=== PATIENT | male | born 1945 | race Caucasian/White ===

== ENCOUNTER 2019-01-27 10:23 | Outpatient (CLI) | payer BC ==
[~2019-01-27] VITALS: Ht 182.9 cm; Wt 99.1 kg
--- NOTE | ~2019-01-27 | HEMODYNAMI ---
PATIENT:GEORGES CUEVAS MEDICAL RECORD: [id number] : 41 LOCATION:[facility] ADMISSION DATE: 01/27/19 Generatedon:01/27/201914:59 Patient name: GEORGES CUEVAS Patient #: [id number] SSN: [id number] : 1945 Date of study: 01/27/2019 Page: Of Hemodynamic Procedure Report Patient Data Patient Demographics Procedure consent was obtained First Name: GEORGES Gender: Male Last Name: FAITH : 1945 Middle Initial: A Age: 73 year(s) Patient #: [id number] Race: SSN: [id number] Additional ID: [id number] Contact details Address: [address] [place] [address] State: [place] City: [facility] Zip code: [address] Past Medical History Allergies: No known allergies Admission Admission Data Admission Date: 01/27/2019 Admission Time: 10:23 Admit Source: Other Lab Results Lab Result Date: 01/27/2019 Lab Result Time: 10:50 Biochemistry Name Units Result Min Max BUN mg/dl 18 --(---*)-- 7 18 Creatinine mg/dl 1.1 --(--*-)-- 0.6 1.3 CBC Name Units Result Min Max Hematocrit % 40.2 -*(----)-- 42 54 Hemoglobin g/dl 14 --(*---)-- 13.5 17.5 Procedure Procedure Types Cath Procedure Diagnostic Procedure CAROL Procedure Description Procedure Date Procedure Date: 01/27/2019 Procedure Start Time: 14:28 Procedure Staff Name Function Jayce Barrow MD Performing Physician Roni Morales RT Monitor Shiva Evangelista RN Nurse Jose French Local Government Legislator Eric Barrientos CRNA Additional personnel Procedure Data Cath Procedure Fluoroscopy Diagnostic fluoroscopy Total fluoroscopy Time: 0 time: 0 min min Diagnostic fluoroscopy Total fluoroscopy dose: 0 dose: 0 mGy mGy Contrast Material Contrast Material Type Amount (ml) Isovue 300 0 Estimated blood loss: 0 ml Procedure Complications No complications Procedure Medications Medication Administration Route Dosage Oxygen etCO2 Nasal cannula 2 l/min Refer to Anesthesia Notes for Sedation Medications 0.9% NaCl I.V. 100 ml/hr Hemodynamics Rest HGB: 14 (g/dl) Heart Rate: 52 (bpm) Snapshots Pre Cath Intra NCS Post Cath Vital Signs Time Heart Resp SPO2 etCO2 NIBP (mmHg) Rhythm Pain Sedation Rate (ipm) (%) (mmHg) Status Level (bpm) 14:33:17 53 15 97 31.5 151/67(89) NSR 0 (11) 10(A) , No pain 14:37:38 61 14 99 30 157/78(128) NSR 0 (11) 10(A) , No pain 14:42:09 53 16 99 33.8 157/68(109) NSR 0 (11) 10(A) , No pain 14:46:29 58 17 98 33 147/70(110) NSR 0 (11) 10(A) , No pain 14:50:49 56 20 95 12 163/83(129) NSR 0 (11) 9(A) , No pain 14:55:15 55 20 98 35.2 155/68(99) NSR 0 (11) 9(A) , No pain 14:58:34 60 38 98 37.5 121/96(114) NSR 0 (11) 10(A) , No pain Medications Time Medication Route Dose Verified Delivered Reason Notes Effective ness by by 14:35:16 Oxygen etCO2 2 Jayce Shannon used for Nasal l/min [facility] Cabrera Evangelista RN procedure cannula 14:35:20 Refer to Jayce Shannon Anesthesia St Cabrera Evangelista RN Notes for Sedation Medications 14:45:52 0.9% NaCl I.V. 100 Jayce Shannon used for ml/hr [facility] Cab[facility] Evangelista RN procedure Procedure Log Time Note 14:15:41 Shiva Evangelista RN sent for patient. Start room use. 14:29:05 Informed consent obtained and on chart 14:31:13 Lab Result : Hematocrit 40.2 % 14:31:13 Lab Result : Hemoglobin 14 g/dl 14:31:13 Lab Result : Creatinine 1.1 mg/dl 14:31:13 Lab Result : BUN 18 mg/dl 14:31:17 Admit Source: Other 14:31:34 Jose French Blanking Press Operator present for CAROL. 14:31:39 Procedure Status CAROL. 14:31:46 Time tracking: Regular hours (M-F 7:00 - 5:00) 14:31:50 Plan of Care:Hemodynamics will remain stable., Cardiac rhythm will remain stable., Comfort level will be maintained., Respiratory function will remain adequate., Patient/ family verbilizes understanding of procedure., Procedure tolerated without complication., Recovers from procedure without complications.. 14:31:58 Patient arrived from Pre/Post Procedure Room to [facility]. Patient remains on bed/stretcher for procedure. 14:32:00 Warm blankets applied, and mirlande hugger turned on for patient comfort. 14:32:01 Correct patient and procedure confirmed by team. 14:32:01 ECG and BP/O2 sat monitors applied to patient. 14:32:04 Vital chart was started 14:32:07 Baseline sample Acquired. 14:32:10 Rhythm: sinus rhythm 14:32:11 Full Disclosure recording started 14:32:24 H&P Date Dictated: 01/13/2019 Within 30 days and on chart., H&P Addendum completed by physician on day of procedure. (MUST COMPLETE FOR ALL OUTPATIENTS). 14:32:25 Pre-procedure instructions explained to patient. 14:32:26 Pre-op teaching completed and patient verbalized understanding. 14:32:28 Family in waiting room. 14:32:30 Patient NPO since Midnight. 14:33:51 Eric Barrientos CRNA present and monitoring patient for TIVA. 14:35:16 Oxygen 2 l/min etCO2 Nasal cannula was administered by Shiva Evangelista RN; used for procedure; 14:35:20 Refer to Anesthesia Notes for Sedation Medications was administered by Shiva Evangelista RN; ; 14:37:29 Patient allergic to No known allergies 14:37:31 Is the patient allergic to Iodine/contrast media? No. 14:37:32 Is patient on blood thinner?Yes 14:37:34 ACC The patient was administered the following blood thiners within the last 24 hours: ACCAspirin 14:37:36 Patient diabetic? No. 14:37:38 Previous problem with sedation/anesthesia? No ? 14:37:39 Snore? Yes 14:37:40 Sleep apnea? No 14:37:40 Deviated septum? No 14:37:42 Opens mouth fully? Yes 14:37:42 Sticks out tongue? Yes 14:37:44 Airway obstruction? No ? 14:37:45 Dentures? No ? 14:37:58 IV patent on arrival in left forearm with 0.9% NaCl at O. 14:38:00 Lab results completed and on chart. 14:38:02 Alarms reviewed by Roberto Connors 14:44:31 Physician arrived 14:44:31 --------ALL STOP TIME OUT------ 14:44:32 Final Timeout: patient, procedure, and site verified with staff and physician. All members of the team are in agreement. 14:44:38 Physical assessment completed. ASA score P 3 - A patient with severe systemic disease as per Jayce Barrow MD. 14:44:42 Sedation plan: TIVA Medication:Propofol 14:45:52 0.9% NaCl 100 ml/hr I.V. was administered by Shiva Evangelista RN; used for procedure; 14:47:31 CAROL started. 14:53:13 CAROL completed. 14:53:29 Procedure ended.(Physican Out) 14:54:30 Fluoroscopy time 00.00 minutes. 14:54:32 Fluoroscopy dose: 0 mGy 14:54:32 Flurop Dose total: 0 14:54:34 Dose Area Product 0 mGy/cm. 14:54:36 Contrast amount:Isovue 300 0ml. 14:54:49 Post-procedure physical assessment completed. ASA score P 3 - A patient with severe systemic disease as per Jayce Barrow MD. 14:54:51 Post procedure rhythm: unchanged. 14:54:53 Estimated blood loss: 0 ml 14:54:54 Post procedure instruction explained to patient.Patient verbalizes understanding. 14:54:55 Patient needs reinforcement of post procedure teaching. 14:55:04 Procedure and supply charges have been captured, reviewed, submitted and are correct. 14:55:06 Procedure Complication : No complications 14:55:11 See physician's report for complete and final results. 14:55:12 Report given to Pre/Post Procedure Room. 14:55:15 Patient transfered to Pre/Post Procedure Room with Stretcher. 14:55:20 End room use (Document Last) 14:59:23 Vital chart was stopped Signature Audit [place] Stage Time Signature Unsigned Intra-Procedure 01/27/2019 Roni Morales 2:59:20 PM RT(R) Signatures Performing Physician : Signature : Jayce Barrow MD Date : Time : Monitor : Roni Morales RT Signature : Date : Time : Nurse : Shiva Evangelista RN Signature : Date : Time : [place] [address] [place] [address]
[~2019-01-27 10:23] MED LIST: ATACAND8 MG PO; BAYER CHEWABLE81 MG PO; COREG6.25 MG PO
[2019-01-27 10:51] VITALS: BP 132/55; Ht 182.9 cm; Wt 99.1 kg
[2019-01-27 11:05] LABS: BASOPHILS 0.4 % (0-2); EOSINOPHILS 2.4 % (0-7); HEMATOCRIT 40.2 % (42.0-54.0); IMMATURE GRANULOCYTES 0.1 % (0-5); LYMPHOCYTES 23.5 % (15-50); MCH 29.9 pg (26.0-34.0); MCHC 34.8 g/dL (31.0-37.0); MCV 85.9 fL (80.0-100.0); MONOCYTES 8.4 % (2-11); NEUTROPHILS 65.2 % (40-80); PLATELET COUNT 188 10x3/uL (130-400); RBC 4.68 10x6/uL (4.20-6.10); RDW 13.4 % (11.5-14.5); WBC 6.7 10x3/uL (4.8-10.8)
[2019-01-27 11:14] LABS: ANION GAP 12.7 mmol/L (8-16); CALCIUM 8.8 mg/dL (8.5-10.1); CARBON DIOXIDE 26.6 mmol/L (21.0-32.0); CREATININE - SERUM 1.1 mg/dL (0.6-1.3); POTASSIUM - SERUM 4.3 mmol/L (3.5-5.1)
--- NOTE | 2019-01-27 15:00 | NUR ---
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 PT AWAKE AND ALERT, DENIES PAIN OR DISCOMFORT. HR NSR RATE 60, BP 127/59, O2 SAT 96 ON 2L/NC. MONITORS PLACED ON PT. DR DUNCAN AT BEDSIDE, DISCUSSING PROCEDURE RESULTS AND PLAN OF CARE. AT BEDSIDE, CALL LIGHT IN REACH
--- NOTE | 2019-01-27 15:32 | NUR ---
PT DOING WELL, SITTING UP AND VISITING W . PT DENIES DIFFICULITY SWALLOWING OR DISCOMFORT. VSS. CALL LIGHT IN REACH, REMAINS AT BEDSIDE.
--- NOTE | 2019-01-27 15:50 | NUR ---
DISCHARGE INSTRUCTIONS REVIEWED W PT AND , BOTH VERBALIZED UNDERSTANDING. PT TOLERATING SIPS OF COLA W/O DIFFICULITY SWALLOWING. MONITORS AND O2 REMOVED. IV REMOVED W CATH INTACT. PT UP TO DRESS FOR DISCHARGE
--- NOTE | 2019-01-27 16:05 | NUR ---
PT DISCHARGED VIA WC TO PRIVATE VEHICLE W . PT HAS ALL BELONGINGS AND DISCHARGE INSTRUCTIONS.
--- NOTE | 2019-01-31 08:39 | TEE ---
PATIENT:GEORGES CUEVAS MEDICAL RECORD: [id number] LOCATION:[facility] AGE OF PATIENT: 73 ADMISSION DATE: 01/27/19 SEX: M REFERRING PHYSICIAN: INTERPRETING PHYSICIAN: HOMERO DUNCAN MD TRANSESOPHAGEAL ECHOCARDIOGRAM Date: 01/27/19 CAROL CHARGE Y INDICATIONS: MITRAL REGURG, ASSSESS FOR CHORAL RUPTURE PREMEDICATIONS: PATIENT'S RESPONSE PROCEDURE DOPPLER MEASUREMENTS: LVIT LA PA RA LVOT RVOT Asc. Ao AV Gradient Peak AV Mean AV Area MV Gradient Peak MV Mean MV Area INTERPRETATION: Doppler: 2-D: COLOR FLOW DOPPLER NORMAL SALINE STUDY: MISCELLANOUS: DIAGNOSIS: PLAN: Mail Handler Assistant:3 Dr. Nieves Automotive Lube Technician: Keena VALENCIA COMMENTS: JAMEL PATIENT DATE OF SERVICE: 01/27/2019 DESCRIPTION OF PROCEDURE: After general sedation via TIVA via anesthesia, transesophageal Omniplane probe was placed in the distal esophagus and proximal stomach without difficulty. FINDINGS: No LVH. LV internal dimensions are normal. Wall motion is normal. EF is greater than or equal to 55%. Aortic valve is calcified with no restriction of leaflet motion and good valve excursion. There is mild AI by TRANSESOPHAGEAL ECHOCARDIOGRAM REPORT [id number] DAVID CUEVAS color-flow imaging. Left atrium appears grossly dilated. Mitral valve has a redundant anterior leaflet. I do not see any chordae or other structures actually prolapsing into the atrium, but there is severe MR by color flow imaging. Right-sided chambers were grossly normal with mild TR. At the end of procedure, the transesophageal Omniplane probe was turned posteriorly and this showed mild atherosclerotic debris in the descending aorta. TRANSINT:[id number] Voice Confirmation ID: [id number] DOCUMENT ID: [id number] at [id number] CC: [id number] DICTATION DATE: 01/27/19 1500 MANUFACTURING MACHINE OPERATOR: 01/27/19 2226 DEP CLI 01/27/19 [facility] [address] [id number]
== END 2019-01-27 16:05 | disposition home or self-care (01) ==
LOC: D.CATH 10:23
PROVIDERS: ATTEND Internal Medicine Interventional Cardiology
DX: I34.9 Nonrheumatic mitral valve disorder, unspecified (principal)